=== PATIENT | male | born 1945 | race Caucasian/White ===

== ENCOUNTER → 2022-02-06 14:52 | Outpatient (BNVA) | payer OTHER, SELFPAY | PROVIDERS: PCP Family Medicine; Visit Provider Family Medicine | DX: I10 Essential (primary) hypertension (principal); E03.9 Hypothyroidism, unspecified; E78.5 Hyperlipidemia, unspecified; Z13.6 Encounter for screening for cardiovascular disorders; F41.9 Anxiety disorder, unspecified | CPT/HCPCS: 80053; 84443; 85025; 86803; 87806 ==

== ENCOUNTER 2022-02-07 12:54 | Outpatient (CLI) | payer MEDICARE, SELFPAY ==
--- NOTE | 2022-02-07 13:18 | XR_ITS ---
WS: [id number] Chest 2 views, 02/07/2022 Clinical Data: unintentional weight loss Comparison: None. Findings: No nodules, masses or effusions are seen. The heart is normal. The pulmonary vascularity is not increased. No pneumonia or pneumothorax is seen. There is a dextroscoliosis. The aortic arch and descending thoracic aorta show mild tortuosity. XR/XR chest 2V* 21201 Impression: Atherosclerosis.
== END 2022-02-07 12:55 | disposition home or self-care (01) ==
LOC: RAD 13:03
PROVIDERS: PCP Family Medicine; Visit Provider Family Medicine
DX: R63.4 Abnormal weight loss (principal); I70.0 Atherosclerosis of aorta; D53.9 Nutritional anemia, unspecified; E53.8 Deficiency of other specified B group vitamins
CPT/HCPCS: 71046; 82607; 82746

== ENCOUNTER → 2022-03-06 15:10 | Outpatient (BNVA) | payer MEDICARE, SELFPAY | PROVIDERS: PCP Family Medicine; Visit Provider Family Medicine | DX: E87.1 Hypo-osmolality and hyponatremia (principal) | CPT/HCPCS: 80048 ==

== ENCOUNTER → 2022-08-08 13:13 | Outpatient (BNVA) | payer MEDICARE, SELFPAY | PROVIDERS: PCP Family Medicine; Visit Provider Family Medicine | DX: E03.9 Hypothyroidism, unspecified (principal); I10 Essential (primary) hypertension | CPT/HCPCS: 84443 ==

== ENCOUNTER → 2022-12-29 13:05 | Outpatient (BNVA) | payer MEDICARE, SELFPAY | PROVIDERS: PCP Family Medicine; Visit Provider Family Medicine | DX: I10 Essential (primary) hypertension (principal); R35.1 Nocturia | CPT/HCPCS: 80053; 80061; 82043; 84153; 85025 ==

== ENCOUNTER → 2023-08-27 13:33 | Outpatient (BNVA) | payer MEDICARE, SELFPAY | PROVIDERS: PCP Family Medicine; Visit Provider Family Medicine | DX: I10 Essential (primary) hypertension (principal); E03.9 Hypothyroidism, unspecified; R97.20 Elevated prostate specific antigen [PSA] | CPT/HCPCS: 80053; 84153; 84443 ==

== ENCOUNTER → 2024-06-06 10:19 | Outpatient (BNVA) | payer MEDICARE, SELFPAY | PROVIDERS: PCP Family Medicine; Visit Provider Family Medicine | DX: I10 Essential (primary) hypertension (principal); E78.5 Hyperlipidemia, unspecified; R73.01 Impaired fasting glucose; E03.9 Hypothyroidism, unspecified; N18.2 Chronic kidney disease, stage 2 (mild) | CPT/HCPCS: 80053; 80061; 82607; 83036; 84443; 85025 ==

== ENCOUNTER → 2024-11-07 14:32 | Outpatient (BNVA) | payer MEDICARE, SELFPAY | PROVIDERS: PCP Family Medicine; Visit Provider Family Medicine | DX: I10 Essential (primary) hypertension (principal); E03.9 Hypothyroidism, unspecified; N18.2 Chronic kidney disease, stage 2 (mild); D53.9 Nutritional anemia, unspecified; R53.83 Other fatigue; R63.4 Abnormal weight loss; G60.9 Hereditary and idiopathic neuropathy, unspecified; Z86.79 Personal history of other diseases of the circulatory system | CPT/HCPCS: 80053; 82607; 83540; 84439; 84443; 85025 ==

== ENCOUNTER → 2025-01-10 16:42 | Outpatient (BNVA) | payer MEDICARE, SELFPAY | PROVIDERS: PCP Family Medicine; Visit Provider Family Medicine | DX: R42 Dizziness and giddiness (principal); R63.4 Abnormal weight loss; R05.9 Cough, unspecified; E87.1 Hypo-osmolality and hyponatremia; N18.2 Chronic kidney disease, stage 2 (mild) | CPT/HCPCS: 80053; 83540; 85025; G0328 ==

== ENCOUNTER 2025-02-02 13:38 | Outpatient (CLI) | payer MEDICARE, SELFPAY ==
--- NOTE | 2025-02-02 13:42 | USCV_ITS ---
Randy Tatum Age: 79 Gender: M : 1945 Exam Date: 02/02/2025 13:48 Ordering Phys: Veronica Flores MD Technologist: LIGIA Exam Location: [facility] – [place] Indication: dizziness Risk Factors: Previous Vascular Surgery: Right Brachial BP: / Left Brachial BP: / Right Left Velocity (cm/s) Spectral Plaque Velocity (cm/s) Spectral Plaque Syst/Diast Broadening Syst/Diast Broadening 77.60/ 16.70 Prox CCA 98.40 / 18.10 74.90/ 11.50 Mid CCA 65.50 / 8.90 50.20/ 9.50 Distal CCA 47.60 / 9.40 32.70/ 5.10 Prox ICA 29.00 / 5.30 29.60/ 5.80 Mid ICA 54.20 / 11.90 24.40/ 6.90 Distal ICA 65.20 / 16.20 94.10 ECA 103.10 0.70 ICA/CCA 0.60 Antegrade Vertebral Antegrade 21.30/ 4.40 cm/s 40.60/ 9.50 cm/s Tri Subclavian Tri 73.60 104.3 0 FINDINGS Comparison: none available. No significant elevation of systolic or diastolic velocities. Waveforms are normal. Minimal carotid plaque in the bifurcations. CONCLUSIONS Bilateral ICA stenosis less than 50%. Minimal carotid atherosclerosis. Dr. Juana Raya DO (Electronically Signed) Final Date: 02 February 2025 14:32 S
== END 2025-02-02 13:39 | disposition home or self-care (01) ==
LOC: RAD 13:40
PROVIDERS: PCP Family Medicine; Visit Provider Family Medicine
DX: R42 Dizziness and giddiness (principal); I65.23 Occlusion and stenosis of bilateral carotid arteries
CPT/HCPCS: 93880

== ENCOUNTER 2025-02-06 17:18 | Observation (INO) | payer MEDICARE, SELFPAY ==
[2025-02-06] VITALS (10 sets, daily range): BP systolic 142–163; BP diastolic 60–111; PULSE 64–91; RESP 12–20; TEMP 36.6–36.9; O2SAT 94–100
--- NOTE | 2025-02-06 17:28 | W.ED.WEAKNES ---
HPI - Weakness General: Chief complaint: Recheck/Abnormal Lab/Rx Stated complaint: abnormal labs Time Seen by Provider: 02/06/25 17:25 History of Present Illness: 79-year-old man with a history of iron deficiency anemia with chronic blood loss, positive occult stool, hyponatremia, chronic kidney disease, hyperlipidemia, anxiety, hypothyroidism and hypertension who presents to the emergency room from clinic with worsening anemia. His physician called here and I talked with her personally. She would like to have him transfused. She says he has been drifting down over the last month and got down to 6.7 today. She said his stool was occult positive and she was arranging a endoscopy but his has fairly advanced dementia and apparently they contacted her and he did not make the visit. He appears a bit pale. He says he is been short of breath and dizzy but no chest pain. He has not had any large black stools or black tarry stools. Related Data Previous Rx's ?Medication ?Instructions ?Recorded fluoxetine 10 mg capsule 10 mg PO QAM #90 caps 08/18/24 ezetimibe 10 mg tablet See Rx Instructions .Route 09/06/24 .COMPLEX #90 tabs levothyroxine 50 mcg tablet 50 mcg PO DAILY #90 tabs 12/16/24 (Synthroid) omeprazole 40 mg capsule,delayed 40 mg PO QAM #90 caps 01/10/25 release Allergies Allergy/AdvReac Type Severity Reaction Status Date / Time Penicillins Allergy Severe ALGY-Anaphy Verified 02/06/25 14:11 laxis iodine Allergy Mild ALGY-Rash Verified 02/06/25 14:11 hydrochlorothiazide AdvReac Intermediate other Verified 02/06/25 14:11 Review of Systems Narrative: Constitutional symptoms: Negative except as documented in HPI. Skin symptoms: Negative except as documented in HPI. Eye symptoms: Negative except as documented in HPI. ENMT symptoms: Negative except as documented in HPI. Respiratory symptoms: Negative except as documented in HPI. Cardiovascular symptoms: Negative except as documented in HPI. Gastrointestinal symptoms: Negative except as documented in HPI. Genitourinary symptoms: Negative except as documented in HPI. Musculoskeletal symptoms: Negative except as documented in HPI. Neurologic symptoms: Negative except as documented in HPI. Psychiatric symptoms: Negative except as documented in HPI. Endocrine symptoms: Negative except as documented in HPI. PFS ED PFSH: Medical History (Updated 02/06/25 @ 17:45 by Kecia Reyes MD) Iron deficiency anemia due to chronic blood loss Positive occult stool blood test 8.26.25 Hyponatremia Enrolled in chronic care management CKD (chronic kidney disease), stage II Dyslipidemia Anxiety Hypothyroidism Benign essential HTN History of Qchir-Dewtpyezf-Fqyty (WPW) syndrome Surgical History No pertinent past surgical history Family History (Updated 02/06/25 @ 18:46 by Francis Louis MD) Father Heart disease Social History Smoking and tobacco/nicotine status: current every day tobacco/nicotine user cigarettes Packs smoked per day: 0.25 Years cigarettes smoked: 60 Alcohol intake: current Alcohol intake frequency: 3 or more drinks per day Alcohol type: beer and hard liquor Substance/Drug Use: never Household members: spouse Marital status: Number of children: 0 Highest education level completed: High School Graduate Current occupational status: retired 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 Skin: Warm, dry. Appears pale Head: Normocephalic, atraumatic. Neck: Supple, trachea midline. Eye: Extraocular movements are intact. Ears, nose, mouth and throat: mucosa moist. Cardiovascular: Regular, Normal peripheral perfusion. Respiratory: Lungs are clear to auscultation, respirations are non-labored, breath sounds are equal, Symmetrical chest wall expansion. Gastrointestinal: Soft, Nontender, Non distended Musculoskeletal: Normal ROM, no deformity. Neurological: Alert and oriented, No focal neurological deficit observed. Psychiatric: Cooperative, appropriate mood & affect. Course Vital Signs: Vital signs: Vital Signs Temperature 97.8 F 02/06/25 17:25 Pulse Rate 90 02/06/25 17:25 Respiratory Rate 19 H 02/06/25 17:25 Blood Pressure 143/60 02/06/25 17:25 Pulse Oximetry 100 02/06/25 17:25 Oxygen Delivery Me thod Room Air 02/06/25 17:25 MDM - Weakness Medical Decision Making Medical decision making: Differential diagnosis including but not limited to and based on the above HPI, review of systems and physical exam: Patient already has a CBC done today that shows a hemoglobin of 6.7. I will check a BMP to make sure his BUN is not elevated which would indicate he has acute upper GI bleeding. Orders placed to evaluate differential diagnosis based on the above differential, HPI and physical exam Lab Review: Laboratory results were reviewed and interpreted by myself the emergency room physician. BUN and creatinine 11 and 0.9. Sodium is 128. This is just slightly below his baseline which is usually around 130. I reviewed the patient's medical record. Reexamination: Patient remained stable. No increased work of breathing. No altered mental status. No focal motor deficits. Consultation: I spoke with Dr. Chávez and requested that the patient might be scoped while here in the hospital as there is been some difficulty and he slipped through the cracks with his 's dementia. He declines and says that it should be done as an outpatient. Consultation: I spoke with Dr. Little who is on-call for the hospitalist service who agrees to observation for blood transfusion Assessment and plan: Anemia -I discussed the patient with the hospitalist on-call who is admitting the patient. - Discussed findings and plan with patient. Answered any questions. - All laboratory values were reviewed and interpreted personally by myself, the ER physician - Evaluation and treatment of this problem were appropriate in the emergency setting Lab Data 02/06/25 17:48 Laboratory Results Sodium 128 mmol/L (136-145) L 02/06/25 17:48 Potassium 3.0 mmol/L (3.5-5.1) L 02/06/25 17:48 Chloride 95 mmol/L (98-107) L 02/06/25 17:48 Carbon Dioxide 19 mmol/L (22-29) L 02/06/25 17:48 Anion Gap 17.0 (5-19) 02/06/25 17:48 BUN 11 mg/dL (8-23) 02/06/25 17:48 Creatinine 0.9 mg/dL (0.7-1.2) 02/06/25 17:48 GFR Calculation Not Reportable 02/06/25 17:48 Glucose 128 mg/dL (65-115) H 02/06/25 17:48 Calculated Osmolality 267 mOsm/kg (285-295) L 02/06/25 17:48 Calcium 8.4 mg/dL (8.5-10.5) L 02/06/25 17:48 Blood Type A Positive 02/06/25 17:48 Rho(D) Type Rh positive 02/06/25 17:48 Antibody Screen Negative 02/06/25 17:48 Crossmatch See Detail 02/06/25 17:48 No radiology studies performed this visit Discharge Plan Discharge Patient Disposition: Placed in Observation Admit Provider: Francis Louis Clinical Impression: Anemia Coding Level of Care Code ED Central Office Installer for Jv Morrell
[2025-02-06 18:19] LABS: Anion Gap 17.0 (5-19); Blood Urea Nitrogen 11 mg/dL (8-23); Calcium 8.4 mg/dL (8.5-10.5); Carbon Dioxide 19 mmol/L (22-29); Chloride 95 mmol/L (98-107); Creatinine Clr Calc Pharmacy 55.9847; Glucose 128 mg/dL (65-115); Osmolality Calculated 267 mOsm/kg (285-295); Potassium 3.0 mmol/L (3.5-5.1); Sodium 128 mmol/L (136-145)
--- NOTE | 2025-02-06 18:40 | P.HP_ITS ---
Providers/Chief Complaint 2 Admitting Physician: Dr. Louis Primary Care Provider: Veronica Flores MD Chief Complaint: anemia History of Present Illness Randy Tatum is a 79 year old male presenting with anemia. He has been lightheaded and more weak for the last 2-3 weeks. Denies any blood or melena per rectum or other bleeding. He had a colonoscopy and EGD about 3-5 years ago with finding of polyps that were removed. He was told he did not need further scopes 2/2 age. He denies any headache, chest pain or other symptoms, but has been very weak and anxious of falling. His hemoglobin at outpatient lab was < 7 and he was told to go to the ER for transfusion. ER consulted GI and they plan to do scopes as outpatient after his hemoglobin is improved. Review of Systems 2 Const: Denies: fever(s), chills or malaise Eyes: Denies: blurry vision ENMT: Denies: throat pain or mouth pain Card: Denies: chest pain or palpitations Resp: Denies: dyspnea or productive cough GI: Denies: abdominal pain, nausea, vomiting, hematochezia or melena : Denies: flank pain Musc: Denies: neck pain or back pain Skin/Breast: Denies: rash, pruritus or erythema Neuro: Denies: headache(s), numbness in extremities or sensory changes Psych: Denies: anxiety or depression Medications/Allergies Home Medications ?Medication ?Instructions ?Recorded ?Confirmed ?Last Taken ?Type fluoxetine 10 mg capsule 10 mg PO QAM #90 caps 02/06/25 Unknown Rx ezetimibe 10 mg tablet See Rx Instructions .Route 0 09/06/24 02/06/25 Unknown Rx .COMPLEX #90 tabs levothyroxine 50 mcg tablet 50 mcg PO DAILY #90 tabs 0 12/16/24 02/06/25 Unknown Rx (Synthroid) omeprazole 40 mg capsule,delayed 40 mg PO QAM #90 caps 01/10/25 02/06/25 Unknown Rx release Allergies Allergy/AdvReac Type Severity Reaction Status Date / Time Penicillins Allergy Severe ALGY-Anaphy Verified 02/06/25 14:11 laxis iodine Allergy Mild ALGY-Rash Verified 02/06/25 14:11 hydrochlorothiazide AdvReac Intermediate other Verified 02/06/25 14:11 PFSH Acute 2 PFSH: Medical History (Updated 02/06/25 @ 17:45 by Kecia Reyes MD) Iron deficiency anemia due to chronic blood loss Positive occult stool blood test 8.26.25 Hyponatremia Enrolled in chronic care management CKD (chronic kidney disease), stage II Dyslipidemia Anxiety Hypothyroidism Benign essential HTN History of Gnthd-Vkuebbgtf-Sunus (WPW) syndrome Surgical History No pertinent past surgical history Family History (Updated 02/06/25 @ 18:46 by Francis Louis MD) Father Heart disease Social History Smoking and tobacco/nicotine status: current every day tobacco/nicotine user cigarettes Packs smoked per day: 0.25 Years cigarettes smoked: 60 Alcohol intake: current Alcohol intake frequency: 3 or more drinks per day Alcohol type: beer and hard liquor Substance/Drug Use: never Household members: spouse Marital status: Number of children: 0 Highest education level completed: High School Graduate Current occupational status: retired 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 Vitals/I&O/Wt Last Vital Signs Temp 97.8 F 02/06/25 17:25 Pulse 90 02/06/25 17:25 Resp 19 H 02/06/25 17:25 BP 143/60 02/06/25 17:25 Pulse Ox 100 02/06/25 17:25 O2 Del Method Room Air 02/06/25 17:25 Weight last 48 hrs Weight 58.513 kg Physical Exam 2 Const: COMMON NORMALS: no acute distress, average body habitus and patient oriented x3 HENMT: COMMON NORMALS: normocephalic and atraumatic Eye: COMMON NORMALS: Equal, round and reactive pupils present and EOMs intact bilaterally Lymph: LYMPHATIC: no lymphadenopathy noted, no lymphedema noted and lymphadenopathy Chest: COMMONS NORMALS: normal inspection of the chest Resp: COMMON NORMALS: normal respiratory effort, No retractions and clear to auscultation bilaterally Cardio: COMMON NORMALS: no JVD, regular rate, regular rhythm, S1 normal heart sound present and S2 normal heart sound present GI: COMMON NORMALS: Normal to inspection, nondistended, normoactive bowel sounds present, Soft to palpation and non-tender Back/Pelvis: COMMON NORMALS: no CVA tenderness, thoracic and lumbar spine normal to inspection and no thoracic nor lumbar tenderness Extremity: COMMON NORMALS: normal to inspection, full ROM and no joint enlargement Neuro: COMMON NORMALS: patient oriented x3 and CN's II-XII intact bilaterally Psych: COMMON NORMALS: mental status grossly normal Data 02/06/25 17:48 A&P Assessment and plan 1. Anemia: 2. Iron deficiency anemia due to chronic blood loss: 3. Positive occult stool blood test: Plan: 79 year old male presenting with anemia Acute on chronic blood loss anemia CARRIE 2/2 chronic blood loss - transfusion ordered in ER - iron level 9, get ferritin - IV iron ordered Hypokalemia - give 40 meq today, recheck in AM Anxiety - ativan PRN Diet: regular PPx: SCDs only for anemia Disposition - restart home meds once entered - full code, up ad jose alfredo - Per GI, plan to scope outpatient once hemoglobin levels improve - will need close follow up for blood and iron levels after D/C PDMP PDMP Reviewed: Not Reviewed Attestations 2 Medical Necessity Statement*: Admitted to observation for transfusion Time Spent in Patient Care: 16 - 35 minutes Coding Level of Care Code Acute Code for Chg Fwd Diagnoses Anemia D64.9 Iron deficiency anemia due to chronic blood loss D50.0 Iron deficiency anemia type: chronic blood loss Positive occult stool blood test R19.5
[2025-02-06 19:21] LABS: Ferritin 15 ng/mL (30-400)
[2025-02-06] MEDS: ferric gluconate 125 MG in sodium chloride 0.9% (100 ml) 100 ML 110 MG IV (19:49)
[2025-02-07] VITALS (12 sets, daily range): BP systolic 124–157; BP diastolic 61–79; PULSE 64–78; RESP 15–18; TEMP 36.4–36.8; O2SAT 94–97
[2025-02-07 08:54] LABS: Hematocrit 27.1 % (37-53); Hemoglobin 8.90 g/dL (11.27-16.99); Mean Corpuscular HGB Conc 32.8 g/dL (30-55); Mean Corpuscular Hemoglobin 28.1 pg (27-33); Mean Corpuscular Volume 85.5 fl (82-101); Nucleated Red Blood Cells % 0 %; Platelet Count 337 10^3/cmm (157-399); Red Blood Count 3.17 10^6/uL (3.85-5.65); White Blood Count 12.04 10^3/uL (3.29-11.43)
[2025-02-07 09:13] LABS: Anion Gap 12.6 (5-19); Blood Urea Nitrogen 10 mg/dL (8-23); Calcium 8.0 mg/dL (8.5-10.5); Carbon Dioxide 22 mmol/L (22-29); Chloride 103 mmol/L (98-107); Creatinine Clr Calc Pharmacy 64.4567; Glucose 102 mg/dL (65-115); Osmolality Calculated 277 mOsm/kg (285-295); Potassium 3.6 mmol/L (3.5-5.1); Sodium 134 mmol/L (136-145)
--- NOTE | 2025-02-07 10:22 | P.DS_ITS ---
Discharge Providers Date of Admission: 02/06/25 18:49 Date of Discharge: February 07, 2025 Attending Provider at Admission: Francis Louis MD Attending Provider at Discharge: Francis Louis MD Primary Care Provider: Veronica Flores MD Diagnoses at Discharge Discharge Diagnosis 1. Anemia: 2. Iron deficiency anemia due to chronic blood loss: 3. Positive occult stool blood test: Other Information Additional DC diagnoses/information: 79 year old male presenting with anemia Acute on chronic blood loss anemia CARRIE 2/2 chronic blood loss - severe iron deficiency - transfusion ordered in ER - iron level 9, get ferritin - IV iron ordered, complete daily iron transfusions while here - he will need weekly iron transfusions until his ferritin is > 100, will will order for 5 weeks, but he may need longer than this depending on ferritin levels. - will need close follow up with PCP after discharge. Hypokalemia - improved, recheck BMP on follow up. Anxiety - ativan PRN Diet: regular PPx: SCDs only for anemia Disposition - full code, up ad jose alfredo - Per GI, plan to scope outpatient once hemoglobin levels improve - will need close follow up for blood and iron levels after D/C Reason for Visit Reason for Visit: anemia Physical Exam Narrative: Physical Exam Const: no acute distress, average body habi tus and patient or iented x3 HENMT: normocephalic and atraumatic Eye: Equal, round and r eactive pupils pre sent and EOMs inta ct bilaterally Lymph: no lymphadenopathy noted, no lymphed hue noted and lymp hadenopathy Chest: normal inspection of the chest Resp: normal respiratory effort, No retrac tions and clear to auscultation bila terally Cardio: no JVD, regular ra te, regular rhythm , S1 normal heart sound present and S2 normal heart so und present GI: nondistended, Soft to palpation and non-tender Back/Pelvis: no CVA tenderness, thoracic and lumb ar spine normal to inspection and no thoracic nor lumb ar tenderness Extremity: normal to inspecti on, full ROM and n o joint enlargemen t Neuro: oriented x3 and CN 's II-XII intact b ilaterally Psych: mental status jacky sly normal Discharge Data Studies Completed and Pending Laboratory Results WBC 12.04 10^3/uL (3.29-11.43) H 02/07/25 08:37 RBC 3.17 10^6/uL (3.85-5.65) L 02/07/25 08:37 Hgb 8.90 g/dL (11.27-16.99) L D 02/07/25 08:37 Hct 27.1 % (37-53) L D 02/07/25 08:37 MCV 85.5 fl (82-101) 02/07/25 08:37 MCH 28.1 pg (27-33) 02/07/25 08:37 MCHC 32.8 g/dL (30-55) 02/07/25 08:37 RDW 14.2 % (12.1-15.1) 02/07/25 08:37 Plt Count 337 10^3/cmm (157-399) 02/07/25 08:37 MPV 9.0 fL (7.4-10.4) 02/07/25 08:37 Neut % (Auto) 73.2 % 02/07/25 08:37 Lymph % (Auto) 11.0 % 02/07/25 08:37 [place] % (Auto) 13.8 % 02/07/25 08:37 Eos % (Auto) 0.6 % 02/07/25 08:37 Baso % (Auto) 0.3 % 02/07/25 08:37 Neut # (Auto) 8.82 10^3/uL (1.8-7.7) H 02/07/25 08:37 Lymph # (Auto) 1.3 10^3/uL (0.8-4.8) 02/07/25 08:37 [place] # (Auto) 1.7 10^3/uL (0.2-0.9) H 02/07/25 08:37 Eos # (Auto) 0.1 10^3/uL (0.0-0.8) 02/07/25 08:37 Baso # (Auto) 0.0 10^3/uL (0.0-0.1) 02/07/25 08:37 Nucleated RBC % (auto) 0 % 02/07/25 08:37 Nucleated RBCs # 0.0 /100WBC 02/07/25 08:37 Sodium 134 mmol/L (136-145) L 02/07/25 08:37 Potassium 3.6 mmol/L (3.5-5.1) 02/07/25 08:37 Chloride 103 mmol/L (98-107) 02/07/25 08:37 Carbon Dioxide 22 mmol/L (22-29) 02/07/25 08:37 Anion Gap 12.6 (5-19) 02/07/25 08:37 BUN 10 mg/dL (8-23) 02/07/25 08:37 Creatinine 0.9 mg/dL (0.7-1.2) 02/07/25 08:37 GFR Calculation Not Reportable 02/07/25 08:37 Glucose 102 mg/dL (65-115) 02/07/25 08:37 Calculated Osmolality 277 mOsm/kg (285-295) L 02/07/25 08:37 Calcium 8.0 mg/dL (8.5-10.5) L 02/07/25 08:37 Ferritin 15 ng/mL (30-400) L 02/06/25 17:48 Blood Type A Positive 02/06/25 17:48 Rho(D) Type Rh positive 02/06/25 17:48 Antibody Screen Negative 02/06/25 17:48 Crossmatch See Detail 02/06/25 17:48 Vitals Last Vital Signs Temp 97.9 F 02/07/25 07:58 Pulse 74 02/07/25 07:58 Resp 16 02/07/25 07:58 BP 152/79 02/07/25 07:58 Pulse Ox 96 02/07/25 07:58 O2 Del Method Room Air 02/07/25 07:58 Discharge Plan Discharge Patient Disposition: Home Condition: Stable Prescriptions: Continued omeprazole 40 mg capsule,delayed release(DR/EC) 40 mg PO QAM Qty: 90 1RF fluoxetine 10 mg capsule 10 mg PO QAM Qty: 90 1RF ezetimibe 10 mg tablet See Rx Instructions .ROUTE .COMPLEX Qty: 90 1RF Dose Instruction: Take 1 tablet by mouth once daily Rx Instructions: Take 1 tablet by mouth once daily levothyroxine [Synthroid] 50 mcg tablet 50 mcg PO DAILY Qty: 90 0RF Referrals: eVronica Flores MD [Primary Care Provider, Family Practice] Patient Instructions: Opioid Safety, Patient Portal & Cesar Instructions Activity Restrictions/Additional Instructions: Continue weekly iron infusions until ferritin is > 100. 5 weekly infusion ordered at time of D/C. Discharge Attestations Time Spent in Discharge Care*: greater than 30 min Quality Metrics Clinical Quality Measures [ No reported AMI, CVA or VTE this stay] Coding Level of Care Code Acute Code for Chg Fwd Diagnoses Anemia D64.9 Iron deficiency anemia due to chronic blood loss D50.0 Iron deficiency anemia type: chronic blood loss Positive occult stool blood test R19.5
--- NOTE | 2025-02-07 10:56 | PC.CHAP ---
Pastoral Care Encounter/Spiritual Assessment Type of Contact [] Declined surgical tech visit [] Patient/Family/Request visit [] Outpatient visit [] Follow-up visit [] Physician referral [] Code/Alert [] Routine visit [] Staff referral [] Actively dying [x] Patient sleeping [] Family support [] [] Out of room [] Palliative care [] [] Receiving care in room [] Pre-surgical visit [] Trauma [] Long length of stay [] ICU visit [] Other: Relational/Emotional Strength [] Patient feels connected with others/family/visitors/staff [] Distress [] Loneliness/isolation [] Abandonment Spirituality of Patient [] Person of Dora [] Attends Anabaptism of their Dora [] Believes in Prayer [] Reads Bible or Episcopalian materials [] There are Spiritual issues to be addressed Cosmetology Teacher Interventions [] Prayer [] Active listening [] Non-anxious presence [] Spiritual/emotional support [] Crisis/trauma care [] Spiritual counseling [] Bereavement support [] Provided bereavement packet [] Provided Bible/devotional materials [] Provided toy/stuffed animal, coloring book to patient or family member [] Provided Communion [] Anointing/[place] [] Salvation [] Completed spiritual assessment [] Other: Impact on Illness or Injury [] Angry [] Fearful [] Anxious [] Often cries [] Exhaustion [] Unable to work [] Unable to attend holiness [] Unable to walk/stand [] Unable to read [] Unable to drive [] Unable to eat/drink [] Unable to sleep [] Unable to be with family [] Patient intubated [] Other: Summary Time spent with patient
[2025-02-07] MEDS: ferric gluconate 125 MG in sodium chloride 0.9% (100 ml) 100 ML 110 MG IV (11:59)
--- NOTE | 2025-02-07 15:19 | PC.NURSE ---
Discussed discharge with patient. Continue home medications, follow up appointment and to continue Iron infusions after discharge. Patient is to come to the Oncology depart. Go to main entrance to check in. Registration will help you get where you need to go.
== END 2025-02-07 13:50 | disposition home or self-care (01) ==
LOC: ER 18:42 → ER IP 18:49 → MEDSURG 21:49
PROVIDERS: Admitting Provider Internal Medicine; Emergency Provider Emergency Medicine; PCP Family Medicine; Visit Provider Internal Medicine
DX: D50.0 Iron deficiency anemia secondary to blood loss (chronic) (principal); R19.5 Other fecal abnormalities; K21.9 Gastro-esophageal reflux disease without esophagitis; I12.9 Hypertensive chronic kidney disease with stage 1 through stage 4 chronic kidney disease, or unspecified chronic kidney disease; N18.2 Chronic kidney disease, stage 2 (mild); E78.5 Hyperlipidemia, unspecified; F41.9 Anxiety disorder, unspecified; E03.9 Hypothyroidism, unspecified; E87.1 Hypo-osmolality and hyponatremia; F17.210 Nicotine dependence, cigarettes, uncomplicated
CPT/HCPCS: 36415; 36430; 80048; 82728; 83540; 85025; 86850; 86900; 86920; 96365; 99285; G0378; J2916; J9999; P9016

== ENCOUNTER → 2025-02-28 13:24 | Outpatient (BNVA) | payer MEDICARE, SELFPAY | PROVIDERS: PCP Family Medicine; Visit Provider Surgery | DX: D50.9 Iron deficiency anemia, unspecified (principal); R03.0 Elevated blood-pressure reading, without diagnosis of hypertension | CPT/HCPCS: 99204 ==

== ENCOUNTER → 2025-03-07 15:56 | Outpatient (BNVA) | payer MEDICARE, SELFPAY | PROVIDERS: PCP Family Medicine; Visit Provider Family Medicine | DX: D50.0 Iron deficiency anemia secondary to blood loss (chronic) (principal); N18.2 Chronic kidney disease, stage 2 (mild) | CPT/HCPCS: 83540; 85025 ==

== ENCOUNTER 2025-03-09 13:00 | Oncology outpatient (recurring) (ONCR) | payer MEDICARE, SELFPAY ==
[2025-02-16] MEDS: SODIUM CHLORIDE 0.9% IV (13:55)
[2025-02-16] MEDS: IRON SUCROSE IV (13:55)
[2025-02-16 14:41] VITALS: BP 174/72; PULSE 78; RESP 16; TEMP 36.6; O2SAT 95
[2025-02-23] MEDS: IRON SUCROSE IV (13:09)
[2025-02-23] MEDS: SODIUM CHLORIDE 0.9% IV (13:09)
[2025-02-23 13:45] VITALS: BP 122/64; PULSE 68; RESP 16; TEMP 36; O2SAT 95
[2025-03-02] MEDS: IRON SUCROSE IV (13:25)
[2025-03-02] MEDS: SODIUM CHLORIDE 0.9% IV (13:25)
[2025-03-02 14:07] VITALS: BP 177/99; PULSE 96; O2SAT 99
[2025-03-09] MEDS: IRON SUCROSE IV (13:35)
[2025-03-09] MEDS: SODIUM CHLORIDE 0.9% IV (13:35)
[2025-03-09 14:10] VITALS: BP 163/89; PULSE 99; RESP 17; TEMP 36.6; O2SAT 96
== END 2025-03-17 23:59 | disposition home or self-care (01) ==
PROVIDERS: PCP Family Medicine; Visit Provider Internal Medicine
DX: D50.0 Iron deficiency anemia secondary to blood loss (chronic); Z79.899 Other long term (current) drug therapy; Z53.9 Procedure and treatment not carried out, unspecified reason
CPT/HCPCS: 96365; J1756

== ENCOUNTER 2025-03-16 07:33 | Day surgery (SDC) | payer MEDICARE, SELFPAY ==
[2025-03-16 07:50] VITALS: BP 142/100; PULSE 104; RESP 18; TEMP 36.5; O2SAT 99; BMI 19.2
--- NOTE | 2025-03-16 08:11 | P.ANESASSM_ITS ---
Pre-Anesthetic Assessment Height/Weight: Height 1.75 m Weight 58.967 kg Temp Pulse Resp BP Pulse Ox O2 Del Method 97.7 F 104 H 18 142/100 99 Room Air 03/16/25 07:50 03/16/25 07:50 03/16/25 07:50 03/16/25 07:50 03/16/25 07:50 03/16/25 07:50 Operation Date: 03/16/25 09:15 Proposed Procedures p EGD EGD with Biopsy 02777 D50.9(Not Applicable) - Óscar Julian MD Familial anesthetic complications: none Was Beta Yolanda taken within 24 hours: N/A Was Clonidine taken within 24 hours: N/A Last intake: Intake Last Liquid Date 03/15/25 Last Liquid Time 23:00 Last Solid Date 03/15/25 Last Solid Time 23:00 Social No alcohol and No tobacco Exam alert, oriented x 3, clear to auscultation bilaterally and regular rate & rhythm CV/HEM Arrythmia and Hypertension El parkinson white GI Gastroesophageal Reflux Disease Metabolic Thyroid Disease Anesthetic Plan ASA status: 3 Anesthesia: MAC Risk of > 500 ml blood loss (7ml/kg in children): No Medications/Allergies Home Medications ?Medication ?Instructions ?Recorded ?Confirmed ?Last Taken ?Type omeprazole 40 mg capsule,delayed 40 mg PO QAM #90 caps 01/10/25 03/16/25 03/15/25 Rx release levothyroxine 50 mcg tablet 50 mcg PO DAILY #90 tabs 1 03/16/25 03/15/25 Rx (Synthroid) ezetimibe 10 mg tablet (Zetia) 10 mg PO DAILY 03/13/25 03/16/25 03/15/25 History fluoxetine 10 mg capsule (Prozac) 10 mg PO QAM 5 03/16/25 03/15/25 History Allergies Allergy/AdvReac Type Severity Reaction Status Date / Time Penicillins Allergy Severe ALGY-Anaphy Verified 03/15/25 10:21 laxis iodine Allergy Mild ALGY-Rash Verified 03/15/25 10:21 hydrochlorothiazide AdvReac Intermediate other Verified 03/15/25 10:21 Current Medications Generic Name Dose Route Start Last Admin Trade Name Freq PRN Reason Stop Dose Admin Sodium Chloride 1,000 mls @ 15 mls/hr 03/16/25 07:41 03/16/25 08:00 Sodium Chloride 0.9% IV 03/17/25 07:40 15 mls/hr .Q24H PRN Administration COLONOSCOPY FLUIDS PFSH Anesthesia Medical History Iron deficiency anemia due to chronic blood loss Positive occult stool blood test 8.26.25 Hyponatremia Enrolled in chronic care management CKD (chronic kidney disease), stage II Dyslipidemia Anxiety Hypothyroidism Benign essential HTN History of Vamox-Qubkcocqk-Mtblm (WPW) syndrome Surgical History No pertinent past surgical history Family History Father Heart disease Social History Smoking and tobacco/nicotine status: current every day tobacco/nicotine user cigarettes Packs smoked per day: 0.25 Years cigarettes smoked: 60 Alcohol intake: current Alcohol intake frequency: 3 or more drinks per day Alcohol type: beer and hard liquor Substance/Drug Use: never Household members: spouse Marital status: Number of children: 0 Highest education level completed: High School Graduate Current occupational status: retired 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
--- NOTE | 2025-03-16 08:31 | P.HPUD_ITS ---
Surgery/Procedure H&P Update DATE OF PROCEDURE: March 16, 2025 DATE H&P PERFORMED: 02/28/25 H&P UPDATE INFORMATION: I have reviewed H&P completed within last 30 days, I have examined patient prior to procedure, No changes to prior documentation, H&P is in [facility] EMR on date indicated and Risks and benefits of the procedure reviewed PLANNED PROCEDURE: Operation Date: 03/16/25 09:15 Proposed Procedures p EGD EGD with Biopsy [id number] D50.9(Not Applicable) - Óscar Julian MD
[2025-03-16 09:45] VITALS: BP 164/109; PULSE 79; RESP 20; TEMP 36.3; O2SAT 93
[2025-03-16 10:16] VITALS: BP 149/86; PULSE 80; RESP 18; O2SAT 93
--- NOTE | 2025-03-16 10:25 | ANE.PACU2 ---
Inpatient post-anesthesia follow up: Airway intact: Yes Vital signs: Temperature 97.3 F Pulse Rate 80 Respiratory Rate 18 Blood Pressure 149/86 Pulse Oximetry 93 Oxygen Delivery Me thod Room Air Oxygen Flow Rate Fraction of Inspir ed Oxygen Hydration adequate: Yes Nausea and vomiting: No Pain level: 1 Mental status: Baseline
== END 2025-03-16 10:28 | disposition home or self-care (01) ==
PROVIDERS: PCP Family Medicine; Visit Provider Surgery
PROC: 0DJ08ZZ Inspection of Upper Intestinal Tract, Via Natural or Artificial Opening Endoscopic (ICD-10-PCS; principal; 2025-03-16 09:15)
DX: K92.2 Gastrointestinal hemorrhage, unspecified (principal); K44.9 Diaphragmatic hernia without obstruction or gangrene; I49.9 Cardiac arrhythmia, unspecified; K21.9 Gastro-esophageal reflux disease without esophagitis; E03.9 Hypothyroidism, unspecified; I12.9 Hypertensive chronic kidney disease with stage 1 through stage 4 chronic kidney disease, or unspecified chronic kidney disease; N18.2 Chronic kidney disease, stage 2 (mild); F41.9 Anxiety disorder, unspecified; E78.5 Hyperlipidemia, unspecified; F17.210 Nicotine dependence, cigarettes, uncomplicated; D50.9 Iron deficiency anemia, unspecified
CPT/HCPCS: 43239; 88305; J2704; J7030

== ENCOUNTER → 2025-03-29 13:59 | Outpatient (BNVA) | payer MEDICARE, SELFPAY | PROVIDERS: PCP Family Medicine; Visit Provider Surgery | DX: Z09 Encounter for follow-up examination after completed treatment for conditions other than malignant neoplasm (principal); R03.0 Elevated blood-pressure reading, without diagnosis of hypertension | CPT/HCPCS: 99213 ==

== ENCOUNTER → 2025-04-18 15:50 | Outpatient (BNVA) | payer MEDICARE, SELFPAY | PROVIDERS: PCP Family Medicine; Visit Provider Family Medicine | DX: I10 Essential (primary) hypertension (principal); N18.2 Chronic kidney disease, stage 2 (mild); D50.0 Iron deficiency anemia secondary to blood loss (chronic) | CPT/HCPCS: 83540; 85025 ==